=== PATIENT | male | born 1940 | race Caucasian/White ===

== ENCOUNTER 2019-08-31 15:00 | Observation (INO) | payer MEDICARE ==
[2019-08-30 11:58] VITALS: BP 149/77
[2019-08-30 12:20] LABS: BASOPHILS % (AUTO) 0.2 % (0.0-5.0); EOSINOPHILS % (AUTO) 1.5 % (0.0-8.0); MEAN CORPUSCULAR HEMOGLOBIN 31.1 pg (27.0-33.0); MEAN CORPUSCULAR VOLUME 94.4 fL (79-99); MONOCYTES % (AUTO) 10.6 % (3.0-13.0); NEUTROPHILS % (AUTO) 60.2 % (40.0-77.0); PLATELET COUNT (AUTO) 328 K/uL (130-400); RED BLOOD CELL COUNT(AUTO) 4.98 MIL/uL (4.50-6.20); RED CELL DISTRIBUTION WIDTH 12.8 % (11.0-15.5); WHITE BLOOD COUNT (AUTO) 8.4 K/uL (4.8-10.8)
[2019-08-30 12:49] LABS: CREATININE 1.4 mg/dL (0.5-1.5); POTASSIUM 4.6 mmol/L (3.5-5.1)
[~2019-08-31] VITALS: Ht 172.7 cm; Wt 86.1 kg
[~2019-08-31 15:00] MED LIST: ALBUHFA IH; AMLO10TA7 PO; LISI40TA4 PO; LORA0.5T83 PO; LOVA40TA2 PO; NAPR220C15 PO; OMEP20TA25 PO
[2019-09-04] VITALS (20 sets, daily range): BP systolic 84–134; BP diastolic 49–79
[2019-09-04] MEDS: CEFAZOLIN SODIUM 1 GM VIAL IVP SCH ×4 (06:00→15:45)
[2019-09-04] MEDS ORDERED: LACTATED RINGERS 1000ML 1,000 ML IV ONE (06:26)
[2019-09-04] MEDS ORDERED: SUCCINYLCHOLINE 200MG/10ML SYR ONE (06:36)
[2019-09-04] MEDS ORDERED: PROPOFOL 10 MG/ML 20ML VIAL IV ONE (06:36)
[2019-09-04] MEDS ORDERED: LIDOCAINE PF 2% 5ML ABBOJECT ONE (06:36)
[2019-09-04] MEDS ORDERED: MIDAZOLAM HCL 1 MG/ML 2ML VIAL ONE (06:37)
[2019-09-04] MEDS ORDERED: FENTANYL CITRATE PF 50 MCG/1 ML 2ML VIAL ONE (06:37)
[2019-09-04] MEDS ORDERED: DEXAMETHASONE SOD PHOSPHATE 10MG/ML 1ML VIAL ONE ×2 (06:37→06:47)
[2019-09-04] MEDS ORDERED: ONDANSETRON HCL 4 MG/2 ML VIAL ONE (06:37)
[2019-09-04] MEDS ORDERED: BUPIVACAINE/EPI/PF 0.25% 30ML VIAL IJ ONE (06:48)
[2019-09-04] MEDS ORDERED: DURAMORPH PF1 MG/ML 10ML AMP IV ONE (06:49)
[2019-09-04] MEDS ORDERED: BACITRACIN 50,000 UNIT VIAL ONE (06:49)
[2019-09-04] MEDS ORDERED: THROMBIN-JMI 20000 UNIT KIT TP ONE (06:49)
[2019-09-04] MEDS ORDERED: EPHEDRINE SULFATE 50 MG/ML AMPULE ONE (06:51)
[2019-09-04 06:56] LABS: BASOPHILS % (AUTO) 0.1 % (0.0-5.0); EOSINOPHILS % (AUTO) 0.3 % (0.0-8.0); MEAN CORPUSCULAR HEMOGLOBIN 31.5 pg (27.0-33.0); MEAN CORPUSCULAR VOLUME 92.9 fL (79-99); MONOCYTES % (AUTO) 17.1 % (3.0-13.0); NEUTROPHILS % (AUTO) 63.2 % (40.0-77.0); PLATELET COUNT (AUTO) 247 K/uL (130-400); RED BLOOD CELL COUNT(AUTO) 4.63 MIL/uL (4.50-6.20); RED CELL DISTRIBUTION WIDTH 12.8 % (11.0-15.5); WHITE BLOOD COUNT (AUTO) 7.2 K/uL (4.8-10.8)
[2019-09-04] MEDS ORDERED: SUB TO ALBUTEROL 2.5MG/3ML NEBULES PER P&T IH ONE (07:43)
[2019-09-04] MEDS ORDERED: PHENYLEPHRINE HCL 10 MG/ML 1ML VIAL IV ONE (09:43)
[2019-09-04] MEDS: DEXAMETHASONE SOD PHOSPHATE 4 MG/ML 1ML VIAL IVP SCH ×3 (10:15→23:10)
[2019-09-04] MEDS ORDERED: PROMETHAZINE HCL 25 MG/ML 1ML AMPULE IM PRN (10:15)
[2019-09-04] MEDS ORDERED: MORPHINE SULFATE 2 MG/ML 1ML SYG IVP PRN (10:15)
[2019-09-04] MEDS ORDERED: HYDROCODONE/ACETAMINOPHEN 5/325 MG TAB PO PRN (10:15)
[2019-09-04] MEDS ORDERED: SODIUM CHLORIDE 0.9% 10 ML VIAL IVP PRN (10:15)
[2019-09-04] MEDS ORDERED: NAPROXEN 250 MG TAB PO PRN (10:15)
[2019-09-04] MEDS ORDERED: LORAZEPAM 0.5 MG TABLET PO SCH (10:15)
[2019-09-04] MEDS ORDERED: ESMOLOL HCL 10 MG/ML 10 ML VIAL ONE (10:35)
--- NOTE | 2019-09-04 11:10 | NUR ---
REPORT RECEIVED FROM FRANKIE RN (PACU). PATIENT S/P LUMBAR DECOMPRESSION. DRESSING DRY AND INTACT WITH CARLOS DRAIN. SANTOS CATHETER IN PLACE. LAST ANCEF GIVEN AT 0745. PATIENT WITH CHRONIC COUGH DUE TO CURRENT SMOKER. PATIENT AWAKE AND ALERT AT THIS TIME. DENIES ANY PAIN.
[2019-09-04] MEDS: ALBUTEROL SULFATE 0.083% 2.5 MG/3 ML INH IH PRN ×2 (11:56→19:09)
[2019-09-04] MEDS: LACTATED RINGERS 1000ML 1,000 ML IV SCH ×2 (14:25→23:10)
--- NOTE | 2019-09-04 15:47 | NUR ---
1526 had pt sign IM Letter,faxed to [phone] and placed in chart under consent tab
[2019-09-04] MEDS ORDERED: SIMVASTATIN 20 MG TABLET PO SCH (21:00)
[2019-09-04] MEDS ORDERED: LISINOPRIL 40 MG TABLET PO SCH (21:00)
[2019-09-04] MEDS ORDERED: AMLODIPINE BESYLATE 5 MG TAB PO SCH (21:00)
[2019-09-04] MEDS ORDERED: PANTOPRAZOLE SODIUM 40 MG TABLET.DR PO SCH (21:00)
--- NOTE | 2019-09-04 21:30 | NUR ---
AMBULATION PT AMBULATED DOWN THE HALLWAY, USED IV POLE FOR ASSISTANCE, [employer]S SALES ASSOCIATE AND NURSE AT EACH SIDE. PT STATED FELT BETTER THIS TIME AROUND THAN BEFORE, NO C/O PAIN, DIZZINESS OR HEADACHE AT THIS TIME. DRESSING TO LOWER BACK OBSERVED INTACT. CARLOS DRAIN, AND SANTOS CATHETER CONTINUE TO DRAIN. WILL CONTINUE TO MONITOR PT.
[2019-09-05 00:16] VITALS: BP 114/72
[2019-09-05 04:16] VITALS: BP 131/65
[2019-09-05] MEDS: DEXAMETHASONE SOD PHOSPHATE 4 MG/ML 1ML VIAL IVP SCH ×2 (04:30→08:26)
[2019-09-05] MEDS: IPRATROPIUM/ALBUTEROL SULFATE 3 ML SOLUTION IH ONE ×2 (06:13→06:26)
[2019-09-05] MEDS: ALBUTEROL SULFATE 0.083% 2.5 MG/3 ML INH IH PRN (06:17)
[2019-09-05 08:20] VITALS: BP 133/71
[2019-09-05] MEDS: LACTATED RINGERS 1000ML 1,000 ML IV SCH (08:29)
== END 2019-09-05 10:30 | disposition home or self-care (01) ==
LOC: EDSTATUS 15:00 → DAHIP 09-04 05:39 → 4AH 09-04 10:38
PROVIDERS: ADMIT Neurological Surgery; ATTEND Neurological Surgery
DX: M48.061 Spinal stenosis, lumbar region without neurogenic claudication (principal); F17.210 Nicotine dependence, cigarettes, uncomplicated; Z85.828 Personal history of other malignant neoplasm of skin; Z90.89 Acquired absence of other organs; Z79.82 Long term (current) use of aspirin; Z79.899 Other long term (current) drug therapy
CPT/HCPCS: 36415 ×2; 63047; 63048 ×2; 72020; 80048; 85025 ×2; 94640 ×3; 94664; 96374; 96375; 96376 ×2; A4215; A4221; A4222; A4223; A4344; A4649 ×4; A4663; A6260; G0378 ×23; J0330; J0690 ×2; J1100 ×6; J2001; J2250; J2274; J2370; J2405; J2704; J3010; J3490 ×3; J7120 ×3